=== PATIENT | female | born 1965 | race Caucasian/White ===

== ENCOUNTER 2024-08-27 04:18 | Inpatient (IN) ==
[2024-08-27] MEDS: KETOROLAC 30 MG/ML VIAL IV STA (04:36)
[2024-08-27] MEDS: SODIUM CHLORIDE 0.9% 1,000 ML IV ONE (04:36)
[2024-08-27] MEDS: ACETAMINOPHEN 1,000 MG/100 ML VIAL IV STA (04:36)
[2024-08-27] MEDS: ONDANSETRON INJ 2 MG/ML 2 ML VIAL IV STA (04:36)
[2024-08-27 04:47] LABS: Hematocrit (blood only) 45.8 % (37.0-47.0); Hemoglobin 14.8 g/dl (12.0-16.0); Immature Granulocytes # (auto) 0.03 K/uL (0.01-0.20); Immature Granulocytes % (auto) 0.2 %; Mean Corpuscular Hemoglobin 28.2 pg (25.0-34.0); Mean Corpuscular Volume 87.2 fL (80.0-100.0); Platelet Count 311 K/uL (130-400); RDW Standard Deviation 47.0 fL (36.4-46.3); Red Blood Count 5.25 M/uL (4.20-5.40); White Blood Count 13.28 K/ul (4.8-10.8)
[2024-08-27] MEDS: OPTIRAY 320 100ml IV ONE (04:57)
[2024-08-27 05:03] LABS: Appearance Urine Clear (Clear); Bacteria Urine Automated 2+ (None Seen); Cast Urine Automated 0-2 /lpf (0-2); Glucose Urine UA Negative (Negative); RBC Urine Automated 0-2 /hpf (0-2)
[2024-08-27 05:08] LABS: Alanine Aminotransferase 22.0 U/L (7-52); Albumin Globulin Ratio 1.8 (0.9-2); Alkaline Phosphatase 87.0 U/L (34-104); Anion Gap 11.0 (3-11); Bilirubin,Total 0.4 mg/dl (0.2-1.0); Blood Urea Nitrogen 17.0 mg/dl (6-23); Calcium 9.8 mg/dl (8.6-10.3); Carbon Dioxide 27.0 mmol/L (21-32); Chloride 100.0 mmol/L (98-107); Creatinine Clr Calc Pharmacy 93.3 ml/min; Globulin 2.8 gm/dl (2.5-4.0); Glucose 127.0 mg/dl (70-99(Fasting)); Lipase 12.0 U/L (11-82); Potassium 3.9 mmol/L (3.5-5.1); Sodium 138.0 mmol/L (136-145); Total Protein 7.7 gm/dl (6.0-8.3)
--- NOTE | 2024-08-27 06:10 | CT Scan Report ---
EXAM: CT abd pelvis IV con only CLINICAL HISTORY: central and left side abd pain TECHNIQUE: Contiguous axial images were obtained from the level of the diaphragm to the pubic symphysis with intravenous contrast. Coronal and sagittal reconstructions were likewise performed and indicated to increase the sensitivity for detecting clinically relevant pathology. If IV contrast material had not been administered, the likelihood of detecting abnormalities relevant to the patient's condition would have been substantially decreased. CT scan was performed according to ALARA (as low as reasonably achievable). COMPARISON: April 16:16:00 FIRING PIN GAUGER FINDINGS: The visualized lung bases are clear. The liver is normal in size and attenuation. No focal liver lesions are seen. There is no intra or extrahepatic biliary ductal dilatation. Hepatic vasculature is patent. The gallbladder is remvoed. The spleen, pancreas, and adrenal glands are unremarkable. The kidneys are normal in size and attenuation. There is no hydronephrosis or perinephric fat stranding. No renal calculi or renal masses are identified. The ureters are normal in caliber and no ureteral calculi are seen. The bladder is normal in contour. Pelvic viscera are unremarkable. Abdominal and pelvic vasculature is patent. No adenopathy or fluid collections are seen. No aggressive appearing osseous lesions are identified. There is evidence of small bowel obstruction with dilated proximal small bowel loops- maximum diameter measures up to 3.5 cm. A clear transition point is identified in the right lower quadrant, involving a mid ileal loop. The bowel distal to the transition point is decompressed. No mass, hernia, or inflammatory mass is visualized at the transition point.-Findings are suspicious for adhesive bands as the likely etiology, particularly given the absence of other structural abnormalities. The colon is decompressed. No wall thickening or signs of colitis. IMPRESSION: 1. Small bowel obstruction with a transition point in the right lower quadrant, involving the mid ileal loop.-Etiology is most likely due to adhesions.-new finding.No radiographic evidence of bowel ischemia or perforation at this time. Electronically signed by Valeriy Coulter 08-27-2024 06:09 AM
--- NOTE | 2024-08-27 06:25 | Emergency Department Note ---
History of Present Illness General Chief complaint: Abdominal Pain Stated complaint: ABD PAIN Time Seen by Provider: 08/27/24 04:24 History of Present Illness Maximum Pain Intensity: 2 This is a 58-year-old female presenting to the emergency department for evaluation of abdominal pain. Patient awoke from sleep with pain that she rates an 8/10. This is periumbilical and left-sided. Pain does not radiate. She is nauseated without vomiting. No fevers or chills. No recent travel history. There is a past surgical history of cholecystectomy and subtotal hysterectomy. The patient did take antacids without any improvement of symptoms. She has not had pain like this in the past. Discomfort is rated a 7/10 at worst. Home Medications Medication Instructions Recorded Confirmed Type albuterol sulfate 2.5 mg/3 mL 0 mg continuous nebulization QID 05/10/24 08/27/24 History (0.083 %) solution for nebulization PRN Wheezing budesonide 0.5 mg/2 mL suspension 0 mg inhalation DAILY 05/21/24 08/27/24 History for nebulization cyanocobalamin (vitamin B-12) 0 mcg IM DIRECTED 08/27/24 08/27/24 History 1,000 mcg/mL injection solution Allergies Allergy/AdvReac Type Severity Reaction Status Date / Time Opioids - Morphine Analogues Allergy Unverified 05/21/24 09:28 Penicillins Allergy Unverified 05/21/24 09:28 Past Med/Surg History Problem List (Updated 08/27/24 @ 21:44 by Neto Shay PA-C) SBO (small bowel obstruction) (Acute) Medical History Asthma Surgical History H/O partial thyroidectomy S/P cholecystectomy H/O: hysterectomy Social History Smoking Status: Never smoker Hx Alcohol Use: No Hx Substance Use: No Preferred Language: Urdu Communication Ability: Effective [employer] Supervisor Required: No Beliefs That Will Affect Care: None Current Living Situation: Other Current Living Situation Comment: boarding with roomate Feels Safe at Home: Yes Safety Concerns: Feels Safe At This Time Assistive Devices: Contacts Review of Systems A total of 10 systems reviewed and were otherwise negative Physical Exam Vital Signs Vital Signs - 24 hr 08/27/24 04:19 08/27/24 04:42 08/27/24 05:04 Temperature 36.5 C Temperature Source Temporal Artery Scan Pulse Rate 118 H Pulse Rate [Left Apical] 94 H Pulse Rate from SpO2 Sensor Respiratory Rate 18 16 Blood Pressure 149/108 H Blood Pressure [Left Arm] 142/75 H Blood Pressure Mean 121 Blood Pressure Mean [Left Arm] 97 Pulse Oximetry 97 96 93 Oxygen Delivery Method Room Air Room Air Room Air Sepsis Recent Fever Within 48 Hours No Sepsis New/Unexplained Change in Mental Status No Sepsis Action Taken by Nursing No Action Required 08/27/24 05:07 08/27/24 05:09 08/27/24 06:24 Temperature Temperature Source Pulse Rate 105 H 95 H 89 Pulse Rate [Left Apical] Pulse Rate from SpO2 Sensor 95 H Respiratory Rate 18 18 Blood Pressure 148/98 H Blood Pressure [Left Arm] Blood Pressure Mean 114 Blood Pressure Mean [Left Arm] Pulse Oximetry 92 Oxygen Delivery Method Sepsis Recent Fever Within 48 Hours Sepsis New/Unexplained Change in Mental Status Sepsis Action Taken by Nursing VITALS: Vitals are noted on the nurse's note and reviewed by myself. Vital signs stable. GENERAL: Well-developed, well-nourished, white female, who is moderately uncomfortable on presentation. HEAD: Normocephalic atraumatic. NECK: Supple without nuchal rigidity. No lymphadenopathy. No thyromegaly. Cervical spine is nontender. HEART: Regular rate and rhythm without murmurs gallops or rubs. LUNGS: Clear to auscultation bilaterally without wheezes, rales or rhonchi. No retractions or accessory muscle use. ABDOMEN: Positive normal bowel sounds x 4. Soft, nontender, without masses or organomegaly. No guarding or rebound tenderness. MUSCULOSKELETAL: No muscle atrophy, erythema, or edema noted. Full range of motion in all extremities. Course Administered Medications Enoxaparin Sodium (Enoxaparin Inj 40 Mg/0.4 Ml Syr) 40 mg SQ Q24H [facility] Stop: 09/26/24 06:59 Last Admin: 08/27/24 12:38 Dose: 40 mg Documented By: ANITA Lactated Ringer's (Lr) 1,000 mls @ 125 mls/hr IV .Q8H [facility] Stop: 08/30/24 06:59 Last Admin: 08/27/24 16:21 Dose: 125 mls/hr Documented By: Infusion: 08/27/24 15:13 Dose: Infused Documented By: Admin: 08/27/24 07:13 Dose: 125 mls/hr Documented By: RASHEL Ketorolac Tromethamine (Ketorolac Tromethamine 15 Mg/Ml Vial) 10 mg IV Q6H PRN PRN Reason: Pain Stop: 09/01/24 11:59 Last Admin: 08/27/24 18:01 Dose: 10 mg Documented By: ANITA Ondansetron HCl (Ondansetron Inj 2 Mg/Ml 2 Ml Vial) 4 mg IV Q6H PRN PRN Reason: Nausea Stop: 09/26/24 06:46 Last Admin: 08/27/24 17:22 Dose: 4 mg Documented By: ANITA Discontinued Medications Sodium Chloride (Nss) 1,000 mls @ 999 mls/hr IV .Q1H1M ONE Stop: 08/27/24 05:29 Last Infusion: 08/27/24 06:04 Dose: Infused Documented By: Admin: 08/27/24 04:36 Dose: 999 mls/hr Documented By: BRUCE Acetaminophen (Ofirmev) 1,000 mg in 100 mls @ 400 mls/hr IV NOW STA Stop: 08/27/24 04:43 Last Infusion: 08/27/24 05:15 Dose: Infused Documented By: Admin: 08/27/24 04:36 Dose: 400 mls/hr Documented By: BRUCE Ioversol (Optiray 320 125ml) 93 ml IV ONCE ONE Stop: 08/27/24 04:58 Last Admin: 08/27/24 11:43 Dose: Not Given Documented By: ANITA Ioversol (Optiray 320 100ml) 93 ml IV ONCE ONE Stop: 08/27/24 04:58 Last Admin: 08/27/24 04:57 Dose: 93 ml Documented By: MARLENY Ketorolac Tromethamine (Ketorolac 30 Mg/Ml Vial) 30 mg IV NOW STA Stop: 08/27/24 04:30 Last Admin: 08/27/24 04:36 Dose: 30 mg Documented By: BRUCE Ondansetron HCl (Ondansetron Inj 2 Mg/Ml 2 Ml Vial) 4 mg IV NOW STA Stop: 08/27/24 04:30 Last Admin: 08/27/24 04:36 Dose: 4 mg Documented By: BRUCE Medical Decision Making Differential Diagnosis Differential diagnosis: Etiologies such as biliary colic, cholecystitis, hepatitis, pancreatitis, cardiac disease, pancreatitis, gastritis, peptic ulcer disease, appendicitis, cystitis, diverticulitis, mesenteric ischemia, inflammatory bowel disease, ileus, bowel obstruction, testicular/adnexal torsion, aortic pathology, shingles, as well as others were considered Laboratory Data 08/27/24 04:32 08/27/24 04:32 Lab Results 08/27/24 08/27/24 Range/Units 04:32 04:44 WBC 13.28 H (4.8-10.8) K/ul RBC 5.25 (4.20-5.40) M/uL Hgb 14.8 (12.0-16.0) g/dl POC Hgb 16.3 H (12.0-16.0) g/dl Hct 45.8 (37.0-47.0) % POC Hct 48 H (37-47) % MCV 87.2 (80.0-100.0) fL MCH 28.2 (25.0-34.0) pg MCHC 32.3 (32.0-36.0) g/dL RDW Std Deviation 47.0 H (36.4-46.3) fL RDW Coeff of Jo-Ann 14.6 H (11.5-14.5) % Plt Count 311 (130-400) K/uL MPV 10.1 (9.4-12.4) fL Immature Gran % (Auto) 0.2 % Neut % (Auto) 69.0 % Lymph % (Auto) 23.4 % [place] % (Auto) 6.0 % Eos % (Auto) 1.1 % Baso % (Auto) 0.3 % Neut # (Auto) 9.16 H (1.40-6.50) K/uL Lymph # (Auto) 3.11 (1.20-3.40) K/uL [place] # (Auto) 0.80 H (0.11-0.59) K/uL Eos # (Auto) 0.14 (0.00-0.50) K/uL Baso # (Auto) 0.04 (0.00-0.20) K/uL Immature Gran # (Auto) 0.03 (0.01-0.20) K/uL POC Sodium 139 (135-144) mmol/L Sodium 138 (136-145) mmol/L POC Potassium 3.9 (3.3-5.0) mmol/L Potassium 3.9 (3.5-5.1) mmol/L POC Chloride 101 (101-112) mmol/L Chloride 100 (98-107) mmol/L Carbon Dioxide 27 (21-32) mmol/L POC Total CO2 24 (24-31) mmol/L Anion Gap 11 (3-11) POC Anion Gap 19.0 (16-25) mmol/L POC BUN 17 (7-18) mg/dl BUN 17 (6-23) mg/dl Creatinine 0.79 (0.6-1.2) mg/dl POC Creatinine 0.7 (0.6-1.3) mg/dl Est Cr Clr Drug Dosing 93.3 ml/min eGFR 87.74 BUN/Creatinine Ratio 21.5 H (10-20) Glucose 127 H (70-99(Fasting)) mg/dl POC Glucose (other) 129 H (70-99) mg/dl Calcium 9.8 (8.6-10.3) mg/dl POC Ioniz Calcium Sujata 1.23 (1.12-1.32) mmol/l Total Bilirubin 0.4 (0.2-1.0) mg/dl AST 17 (13-39) U/L ALT 22 (7-52) U/L Alkaline Phosphatase 87 (34-104) U/L Troponin I High Sens 4.2 (0-14) pg/ml Total Protein 7.7 (6.0-8.3) gm/dl Albumin 4.9 (3.4-5.0) gm/dl Globulin 2.8 (2.5-4.0) gm/dl Albumin/Globulin Ratio 1.8 (0.9-2) Lipase 12 (11-82) U/L Urine Color Yellow Urine Appearance Clear (Clear) Urine pH 5.0 (4.5-7.5) Ur Specific [place] 1.027 (1.000-1.030) Urine Protein Negative (Negative) Urine Glucose (UA) Negative (Negative) Urine Ketones Trace H (Negative) Urine Blood Negative (Negative) Urine Nitrite Negative (Negative) Urine Bilirubin Negative (Negative) Urine Urobilinogen Negative (Negative) Ur Leukocyte Esterase 1+ H (Negative) Urine WBC (Auto) 6-10 H (0-5) /hpf Urine RBC (Auto) 0-2 (0-2) /hpf U Hyaline Cast (Auto) 0-2 (0-2) /lpf U Epithel Cells (Auto) 6-10 H (0-2) /hpf Urine Bacteria (Auto) 2+ H (None Seen) Urine Comment Imaging Data Radiologist's Impression: Abdomen/Pelvis CT 08/27/24 04:29 EXAM: CT abd pelvis IV con only CLINICAL HISTORY: central and left side abd pain TECHNIQUE: Contiguous axial images were obtained from the level of the diaphragm to the pubic symphysis with intravenous contrast. Coronal and sagittal reconstructions were likewise performed and indicated to increase the sensitivity for detecting clinically relevant pathology. If IV contrast material had not been administered, the likelihood of detecting abnormalities relevant to the patient's condition would have been substantially decreased. CT scan was performed according to ALARA (as low as reasonably achievable). COMPARISON: April 16:16:00 ASSISTANT OPERATIONS MANAGER FINDINGS: The visualized lung bases are clear. The liver is normal in size and attenuation. No focal liver lesions are seen. There is no intra or extrahepatic biliary ductal dilatation. Hepatic vasculature is patent. The gallbladder is remvoed. The spleen, pancreas, and adrenal glands are unremarkable. The kidneys are normal in size and attenuation. There is no hydronephrosis or perinephric fat stranding. No renal calculi or renal masses are identified. The ureters are normal in caliber and no ureteral calculi are seen. The bladder is normal in contour. Pelvic viscera are unremarkable. Abdominal and pelvic vasculature is patent. No adenopathy or fluid collections are seen. No aggressive appearing osseous lesions are identified. There is evidence of small bowel obstruction with dilated proximal small bowel loops- maximum diameter measures up to 3.5 cm. A clear transition point is identified in the right lower quadrant, involving a mid ileal loop. The bowel distal to the transition point is decompressed. No mass, hernia, or inflammatory mass is visualized at the transition point.-Findings are suspicious for adhesive bands as the likely etiology, particularly given the absence of other structural abnormalities. The colon is decompressed. No wall thickening or signs of colitis. IMPRESSION: 1. Small bowel obstruction with a transition point in the right lower quadrant, involving the mid ileal loop.-Etiology is most likely due to adhesions.-new finding.No radiographic evidence of bowel ischemia or perforation at this time. Electronically signed by Valeriy Coulter 08-27-2024 06:09 AM MDM Narrative Physical exam and history were performed. Nursing notes, EMR, and Medication List were personally reviewed. No social concerns were identified as barriers to patients care. History was provided by the Patient. Patient appears to have abdominal pain bringing her to the ER. She does not appear toxic on arrival. IV access was established and labs were obtained. Patient was given IV Toradol and IV Tylenol with IV Zofran. She is sensitive to opioids, and these were considered, but not provided. Patient was sent to CT scan for imaging of her belly. Patient's blood work is as above and was reviewed. She does not have a significant elevated white blood cell count, gross anemia, bandemia, or significant electrolyte imbalance. Transaminases are not diagnostic. CT was performed and independently reviewed by myself and radiology, and appears to show small bowel obstruction. This was discussed with the on-call surgical team. Escalation of care is felt to be necessary. Case was also discussed with the on-call hospitalist team who agreed to evaluate the patient here in the ER. Please see their dictation for further patient course, plan, disposition. The chart was completed utilizing [employer] Speech Voice Recognition Software. Grammatical errors, random word insertions, pronoun errors, and incomplete sentences are an occasional consequence of this system due to software limitations, ambient noise, and hardware issues. Any formal questions or concerns about the content, text, or information contained within the body of this dictation should be directly addressed to the provider for clarification. Impression & Plan SBO (small bowel obstruction) Discharge Plan Visit Data Chief Complaint: Abdominal Pain Stated Complaint: ABD PAIN ED Provider: Tammie Henson ED Midlevel Provider: Neto Shay Discharge Problem: SBO (small bowel obstruction) Patient Disposition: Admitted As Inpatient Condition: Fair Discharge Instructions Interventions: ED Discharge Assessment Last Done: 08/27/24 09:57
--- NOTE | 2024-08-27 06:27 | History & Physical Report ---
Date of Service August 27, 2024 Assessment & Plan (1) SBO (small bowel obstruction): Plan: 58-year-old female with past medical history of partial hysterectomy and cholecystectomy who presents with a small bowel obstruction with transition point, suspected adhesional. Small bowel obstruction CTA/P: Small bowel obstruction with transition point in quadrant involving mid ileal loop. Suspect adhesional. N.p.o. Patient has not had vomiting and currently feels her nausea is improving. Defers NGT, but agreeable to this if any recurrent nausea/vomiting. If she has nausea/vomiting recurrent place NGT to LIS IV FM LR 125 cc/h Multimodal pain control with Tylenol, Toradol, breakthrough morphine Zofran for nausea Asthma Well-controlled, no acute exacerbation Albuterol nebulizers as needed for wheezing develops Caffeine Migraines - Will monitor. If able to progress and tolerate PO meds --> can trial fioricet - If progressing and diet advances --> resume coffee History of chest pain Low risk on prior workup. Had 2 coronary calcium scans, first was normal/0, most recent was with a score of 11. No chest pain prior to admission EKG normal sinus rhythm no territorial ST segment changes >1mm DVT prophylaxis: Lovenox. Hold if surgical intervention is anticipated Disposition: MSO CODE STATUS: Full code Diet: N.p.o. (2) Asthma: History of Present Illness Primary Care Provider: RAYMOND WOODRUFF JOHN Camacho is a 58-year-old female with a past medical history of cholecystectomy, hysterectomy, partial thyroidectomy, and well-controlled asthma who presents to the emergency department with severe mid abdominal comfort. Recommended for medical admission for small bowel obstruction with transition point in the right lower quadrant. Suspected due to adhesions. Janice reports she went to sleep around midnight. 1am woke up after rolling around with sudden onset of abdominal discomfort. Pain in her mid abdomen. Tried tums and omeprazole with no relief. 3am 'just in so much pain' so took 3 tylenol and came to the ER. Last BM yesterday. Not passing gas overnight and could not pass BM yesterday. Think she has passed a very small amount of flatus this morning Had a colonoscopy in [place] 2 months ago, no abnormalities. Had a polyp/adenocarcinoma removed prior to that +nausea with pain, no vomiting. Thinks the nausea was from pain. Pain now 4-5/10 and coming in waves Had a past workup in [place] for low risk chest pain, had a coronary CT score of 11, no history of CVA, no history of DVT. No recent chest pain. No history of heart failure. Denies chest pain prior to admission. No dyspnea Very high cholesterol. Statin intolerant, was denied coverage for repatha hx of cholecystectomy, partial hysterectomy, partial thyroidectomy Med hx: Asthma, fibromyalgia, thyroid cancer. Previously took wellbutrin, hasn't taken this in 6 months/ Currently not taking any prescription medications other than B12 shorts Medical History: Reviewed Medications: Reviewed Surgical History: Reviewed Family history: Reviewed Allergies: Reviewed. Allergy to PCN ~age 20, but tolerated to amoxicillin later in life Social History: No tobacco, rare ETOH use Code Status: Full Code Allergies Allergy/AdvReac Type Severity Reaction Status Date / Time Opioids - Morphine Analogues Allergy Unverified 05/21/24 09:28 Penicillins Allergy Unverified 05/21/24 09:28 Home Medications Medication Instructions Recorded Confirmed Type albuterol sulfate 2.5 mg/3 mL 2.5 mg continuous nebulization QID 05/10/24 05/21/24 History (0.083 %) solution for nebulization PRN Wheezing bupropion HCl 300 mg 24 hr tablet, 300 mg PO DAILY 05/10/24 05/21/24 History extended release azithromycin 250 mg tablet See Rx Instructions PO .COMPLEX #6 05/21/24 05/21/24 Rx tabs budesonide 0.5 mg/2 mL suspension mg inhalation DAILY 05/21/24 05/21/24 History for nebulization Past Med/Surg History Problem List SBO (small bowel obstruction) Medical History Asthma Surgical History H/O partial thyroidectomy S/P cholecystectomy H/O: hysterectomy Social History Smoking Status: Never smoker Preferred Language: Yakut Feels Safe at Home: Yes Physical Exam Physical Exam: General: A&Ox3. NAD. Cooperative. HEENT: Atraumatic, normocephalic. Vision/hearing grossly intact. PERLAA. Pulm: CTAB A&P. -wheezes, -rales, -rhonchi. Symmetrical chest rise. No increased work of breathing. No respiratory distress. Cardiac: RRR, -mrg. Radial pulses intact and symmetrical. Abdominal: Diffusely tender in the right and left lower quadrant without rigidity/rebound/guard Results & Data Results & Data Vital Signs (Past 12 Hours) Vital Signs Temp Pulse Pulse Resp BP BP Pulse Ox 08/27/24 05:07 105 H 08/27/24 05:04 94 H 16 142/75 H 93 08/27/24 04:42 96 08/27/24 04:19 36.5 C 118 H 18 149/108 H 97 O2 Del Method 08/27/24 05:07 08/27/24 05:04 Room Air 08/27/24 04:42 Room Air 08/27/24 04:19 Room Air PG Care Time/CCT Total # of Minutes Spent Total Time Spent with Patient: Total time spent is greater than 50% in coordination of care (as documented) at patient's floor/unit and/or counseling patient: Coding Level of Care Code 51607 INT INP/OBS CARE MIN Diagnoses SBO (small bowel obstruction) K56.609 Asthma J45.909
[2024-08-27] MEDS ORDERED: MoRPHine SULFATE 4 MG/ML 1 ML CARP\\VIAL IV PRN (06:47)
[2024-08-27] MEDS ORDERED: MoRPHine SULFATE 2 MG/ML CARP IV PRN (06:47)
[2024-08-27] MEDS: LACTATED RINGER'S 1,000 ML IV SCH (07:13)
[2024-08-27] MEDS ORDERED: ALBUTEROL 0.083% NEBU SOLN 3 ML VIAL NEB PRN (10:41)
[2024-08-27] MEDS: OPTIRAY 320 125ml IV ONE (11:43)
--- NOTE | 2024-08-27 12:06 | Electrocardiogram Report ---
Test Reason : Blood Pressure : */* mmHG Vent. Rate : 100 BPM Atrial Rate : 100 BPM P-R Int : 134 ms QRS Dur : 110 ms QT Int : 366 ms P-R-T Axes : 32 -9 28 degrees QTcB Int : 472 ms Normal sinus rhythm Moderate voltage criteria for LVH, may be normal variant ( R in aVL , [place] product ) Otherwise normal ECG When compared with ECG of 10-May-2024 15:01, Premature ventricular complexes are no longer Present T wave amplitude has increased in Anterior leads Confirmed by Curtis Goldman ([id number]) on 08/27/2024 12:05:48 PM Referred By: REFERRED SELF Confirmed By: Curtis Goldman
[2024-08-27] MEDS: ENOXAPARIN INJ 40 MG/0.4 ML SYR SQ SCH (12:38)
--- NOTE | 2024-08-27 15:39 | Surgery Consultation ---
<Statement entered by Jennifer Reyes, DO - 08/27/24 15:47> I have seen and examined this patient with the surgical STATEMENT SERVICES REPRESENTATIVE this am. I agree with this plan. Date of Consultation August 27, 2024 Assessment & Plan (1) SBO (small bowel obstruction): Patient seen and evaluated this morning with attending surgeon, Dr. Madonna Gandara. All imaging and labs reviewed. -No plans for emergent surgical intervention. Will plan to treat conservatively for now. -Keep NPO, IV fluids for hydration, and pain control as needed -Patient currently without nausea or vomiting, will hold off on NGT placement for now. However if patient does become symptomatic she will require NGT for bowel decompression -Patient has also had chronic diarrhea for the last few months, if she continues with this during her hospitalization , would recommend stool studies to be performed. -Medical management per primary team, surgery will continue to follow History of Present Illness Reason for Consultation: SBO History of Present Illness Patient is a 58-year-old female who presented to the emergency room early this morning with complaints of severe abdominal pain. Patient states the the pain had woken her up from sleep and was located in her mid-abdomen region. The patent states that she tried to take Omeprazole and Tylenol however nothing seemed to help. She also was experiencing some associated nausea however no episdoes of vomiting. The patient also notes she has had chronic diarrhea for the last few months and is unsure the cause. She denies any pain with bowel movements or blood present in her stool. States her last BM was yesterday and since has passed a small amount of gas however no additional BMs. The patient has had colonoscopies in the past, one of which did show a polyp and adenocarcinoma that were both removed. Repeat colonoscopy a few moths ago did not show any abnormalities at that time. She does have a surgical history of hysterectomy and cholecystectomy. The patient was worked up in the emergency room and was found to have CT findings concerning for SBO. The patient was admitted to the medical service and general surgery was consulted. The patient was seen and evaluated this morning with attending surgeon, Dr. Reyes. She is resting comfortably in bed, VSS, and is nontoxic appearing. The patient states her pain has improved however she does continue to feel "uncomfortable" . Allergies Allergy/AdvReac Type Severity Reaction Status Date / Time Opioids - Morphine Analogues Allergy Unverified 05/21/24 09:28 Penicillins Allergy Unverified 05/21/24 09:28 Home Medications Medication Instructions Recorded Confirmed Type albuterol sulfate 2.5 mg/3 mL 0 mg continuous nebulization QID 05/10/24 08/27/24 History (0.083 %) solution for nebulization PRN Wheezing budesonide 0.5 mg/2 mL suspension 0 mg inhalation DAILY 05/21/24 08/27/24 History for nebulization cyanocobalamin (vitamin B-12) 0 mcg IM DIRECTED 08/27/24 08/27/24 History 1,000 mcg/mL injection solution Patient History Medical History Asthma Surgical History H/O partial thyroidectomy S/P cholecystectomy H/O: hysterectomy Social History Smoking Status: Never smoker Preferred Language: Luxembourgish Feels Safe at Home: Yes Review of Systems Constitutional: no fever, no chills and no weakness Respiratory: no cough, no chest congestion and no dyspnea Cardiovascular: no chest pain, no palpitations and no syncope Gastrointestinal: + abdominal pain, + nausea and + diarrhe a/loose stools; no vomiting Genitourinary: no difficulty urinating, no urinary hesitancy and no hematuria Physical Exam Constitutional: WD/WN, vitals as above Respiratory: normal respiratory effort, lungs clear to auscultation Cardiovascular: RRR, no murmur, no edema Gastrointestinal (Abdomen): Abdomen soft, nondistended, +TTP in the mid and lower abdominal region. No rebound, guarding or signs of peritonitis Skin: no rashes, warm and dry Psychiatric: A+Ox3, euthymic affect Results & Data Vital Signs (Past 12 Hours) Vital Signs Temp Pulse Pulse Resp BP BP Pulse Ox 08/27/24 15:18 36.6 C 80 16 118/77 96 08/27/24 09:57 71 17 135/78 96 08/27/24 09:00 79 17 111/69 95 08/27/24 07:00 88 17 144/95 H 93 08/27/24 06:24 89 18 148/98 H 08/27/24 05:09 95 H 18 92 08/27/24 05:07 105 H 08/27/24 05:04 94 H 16 142/75 H 93 08/27/24 04:42 96 08/27/24 04:19 36.5 C 118 H 18 149/108 H 97 O2 Del Method 08/27/24 15:18 Room Air 08/27/24 09:57 Room Air 08/27/24 09:00 Room Air 08/27/24 07:00 Room Air 08/27/24 06:24 08/27/24 05:09 08/27/24 05:07 08/27/24 05:04 Room Air 08/27/24 04:42 Room Air 08/27/24 04:19 Room Air Diagnostic Findings EXAM: CT abd pelvis IV con only CLINICAL HISTORY: central and left side abd pain TECHNIQUE: Contiguous axial images were obtained from the level of the diaphragm to the pubic symphysis with intravenous contrast. Coronal and sagittal reconstructions were likewise performed and indicated to increase the sensitivity for detecting clinically relevant pathology. If IV contrast material had not been administered, the likelihood of detecting abnormalities relevant to the patient's condition would have been substantially decreased. CT scan was performed according to ALARA (as low as reasonably achievable). COMPARISON: April 16:16:00 CIVIL ENGINEERING SPECIALIST FINDINGS: The visualized lung bases are clear. The liver is normal in size and attenuation. No focal liver lesions are seen. There is no intra or extrahepatic biliary ductal dilatation. Hepatic vasculature is patent. The gallbladder is remvoed. The spleen, pancreas, and adrenal glands are unremarkable. The kidneys are normal in size and attenuation. There is no hydronephrosis or perinephric fat stranding. No renal calculi or renal masses are identified. The ureters are normal in caliber and no ureteral calculi are seen. The bladder is normal in contour. Pelvic viscera are unremarkable. Abdominal and pelvic vasculature is patent. No adenopathy or fluid collections are seen. No aggressive appearing osseous lesions are identified. There is evidence of small bowel obstruction with dilated proximal small bowel loops- maximum diameter measures up to 3.5 cm. A clear transition point is identified in the right lower quadrant, involving a mid ileal loop. The bowel distal to the transition point is decompressed. No mass, hernia, or inflammatory mass is visualized at the transition point.-Findings are suspicious for adhesive bands as the likely etiology, particularly given the absence of other structural abnormalities. The colon is decompressed. No wall thickening or signs of colitis. IMPRESSION: 1. Small bowel obstruction with a transition point in the right lower quadrant, involving the mid ileal loop.-Etiology is most likely due to adhesions.-new finding.No radiographic evidence of bowel ischemia or perforation at this time. PG Care Time/CCT Total # of Minutes Spent Total Time Spent with Patient: Total time spent is greater than 50% in coordination of care (as documented) at patient's floor/unit and/or counseling patient: [place] [address] Inpt Consult Level 1 Patient Type New History Problem Focused Exam Problem Focused Medical Decision Making Straight Forward Diagnoses SBO (small bowel obstruction) K56.609
[2024-08-27] MEDS: ONDANSETRON INJ 2 MG/ML 2 ML VIAL IV PRN (17:22)
[2024-08-27] MEDS: KETOROLAC TROMETHAMINE 15 MG/ML VIAL IV PRN (18:01)
[2024-08-28 07:51] LABS: Anion Gap 5.0 (3-11); Blood Urea Nitrogen 10.0 mg/dl (6-23); Calcium 8.4 mg/dl (8.6-10.3); Carbon Dioxide 30.0 mmol/L (21-32); Chloride 105.0 mmol/L (98-107); Creatinine Clr Calc Pharmacy 115.2 ml/min; Glucose 90.0 mg/dl (70-99(Fasting)); Magnesium 1.9 mg/dl (1.7-2.4); Potassium 3.9 mmol/L (3.5-5.1); Sodium 140.0 mmol/L (136-145)
[2024-08-28] MEDS: ACETAMINOPHEN 1,000 MG/100 ML VIAL IV PRN (07:54)
[2024-08-28] MEDS: BUTALBITAL/ACETAMIN/CAFFEINE TAB PO PRN (08:04)
--- NOTE | 2024-08-28 10:28 | Surgery Progress Note ---
<Statement entered by Jennifer Reyes DO - 08/28/24 15:52> I agree with this plan Date of Service August 28, 2024 Assessment & Plan (1) SBO (small bowel obstruction): Plan: - Continue to treat conservatively for now. - Patient is starting to pass a small amount of gas, however no BM yet. Will advance to clear liquids today, however if she is unable to tolerate we will have to back her down to NPO. - Can continue to hold off on NGT placement for now however if patient does become symptomatic she will require it for bowel decompression -Medical management per primary team, surgery will continue to follow. [facility] surgery public relations professional this week. Admission and Anticipated Discharge Date Admission Date: August 27, 2024 Subjective Patient seen and evaluated this morning, she is complaining of a headache due to having any caffeine States that she does feel comfortable in her abdomen, however denies any nausea or vomiting Is passing gas, however no BM Vital signs stable, afebrile Physical Exam Constitutional: WD/WN, vitals as above Respiratory: normal respiratory effort, lungs clear to auscultation Cardiovascular: RRR, no murmur, no edema Gastrointestinal (Abdomen): Abdomen soft, nondistended, minimal tenderness in the lower abdomen No rebound or guarding Skin: no rashes, warm and dry Psychiatric: A+Ox3, euthymic affect Results & Data Vital Signs (Past 12 Hours) Vital Signs Temp Pulse Resp BP Pulse Ox O2 Del Method 08/28/24 08:29 36.7 C 91 H 18 110/66 92 Room Air PG Care Time/CCT Total # of Minutes Spent Total Time Spent with Patient: Total time spent is greater than 50% in coordination of care (as documented) at patient's floor/unit and/or counseling patient: [place] [address] SUB INP/OBS CARE 03/18MIN Patient Type Established History Problem Focused Exam Problem Focused Medical Decision Making Straight Forward Diagnoses SBO (small bowel obstruction) K56.609
--- NOTE | 2024-08-28 17:17 | Hospitalist Progress Note ---
Date of Service August 28, 2024 Assessment & Plan (1) SBO (small bowel obstruction): Plan: SBO likely on the basis of adhesions (h/o hysterectomy - abdominal, as well as cholecystectomy) slowly improving clears started by general surgery remains on IV fluids but lower rate to 60ml/hr BMP am anti-emetics prn finally had BM today! cont walking serial exams (2) Asthma: Plan: no flare at this time (3) DVT prophylaxis: Plan: lovenox 40mg daily (4) Headache: Plan: cont fioricet prn (5) Hx of adenomatous colonic polyps: Plan: h/o cancerous polyp s/p polypectomy GI physician is in [facility] had colonoscopy 2 months ago - was clean, no abnormalities (6) Abdominal pain: Plan: patient reports several months of pain prior to this episode of SBO again had colonoscopy about 2 months ago in [facility] - was negative, however the GI physician said there was a portion of the colon where it appeared there was external compression from some process/pathology subsequent CT a/p have not shown any abnormalities to explain the abnormal finding on c-scope in light of this SBO episode along with her abdominal pain of several months - coupled with the external compression finding on last c-scope - advised she return to her GI doctor in [facility] after this admission to discuss things further will place her CT a/p from this admission on CD for her Admission and Anticipated Discharge Date Admission Date: August 27, 2024 Subjective passed flatus this am ultimately started on clears for lunch the clears caused some mild stomach upset/discomfort but no pain (more of a pressure sensation) has been walking the hallways finally had a small BM this afternoon no nausea/emesis still feels a little bloated Review of Systems Review of Systems: gen - no fevers cv - no cp pulm - no dyspnea or GODINEZ Physical Exam Physical Exam: gen - obese, NAD, very pleasant mouth - MMM neck - no JVD heart - RRR, s1 s2, no murmur lungs - CTA b/l abd - mild distension, BS very diminished, NT, no HSM, no peritoneal signs ext - no edema, pulses 2+ b/l feet psych - a/o x 3 Results & Data Results & Data Vital Signs (Past 12 Hours) Vital Signs Temp Pulse Resp BP Pulse Ox O2 Del Method 07/07/25 08:29 36.7 C 91 H 18 110/66 92 Room Air Laboratory Results Laboratory Results - last 24 hr 08/28/24 07:10 Sodium 140 Potassium 3.9 Chloride 105 Carbon Dioxide 30 Anion Gap 5 BUN 10 Creatinine 0.64 Est Cr Clr Drug Dosing 115.2 eGFR 103.66 BUN/Creatinine Ratio 15.6 Glucose 90 Calcium 8.4 L Magnesium 1.9 PG Care Time/CCT Total # of Minutes Spent Total Time Spent with Patient: Total time spent is greater than 50% in coordination of care (as documented) at patient's floor/unit and/or counseling patient: Coding Level of Care Code 07675 SUB INP/OBS CARE 2/35MIN Diagnoses SBO (small bowel obstruction) K56.609 Asthma J45.909 DVT prophylaxis Z29.9 Headache R51.9 Hx of adenomatous colonic polyps Z86.0101 Abdominal pain R10.9
[2024-08-29 08:46] LABS: Anion Gap 6.0 (3-11); Blood Urea Nitrogen 7.0 mg/dl (6-23); Calcium 8.3 mg/dl (8.6-10.3); Carbon Dioxide 29.0 mmol/L (21-32); Chloride 107.0 mmol/L (98-107); Creatinine Clr Calc Pharmacy 106.8 ml/min; Glucose 100.0 mg/dl (70-99(Fasting)); Potassium 3.7 mmol/L (3.5-5.1); Sodium 142.0 mmol/L (136-145)
--- NOTE | 2024-08-29 09:56 | Surgery Progress Note ---
Date of Service August 29, 2024 Assessment & Plan (1) SBO (small bowel obstruction): Plan: resolved regular diet discharge per medical team Admission and Anticipated Discharge Date Admission Date: August 27, 2024 Subjective good BMs no pain Review of Systems Constitutional: no fever and no chills Respiratory: no cough and no dyspnea Cardiovascular: no chest pain Gastrointestinal: no abdominal pain, no nausea, no vomiting and no change in bowel habits Genitourinary: no dysuria Neurologic: no localized weakness and no generalized weakness Psychiatric: no behavioral changes Physical Exam Constitutional: WD/WN, vitals as above Respiratory: normal respiratory effort, lungs clear to auscultation Cardiovascular: RRR, no murmur, no edema Gastrointestinal (Abdomen): Inspection/Auscultation: abdomen normal to inspection and normal bowel sounds; abdomen not distended Percussi on/Palpation: abdomen soft; abdomen nontender, no guarding and abdomen not rigid Musculoskeletal: Head/Neck/Chest: normocephalic and head atraumatic Skin: no rashes, warm and dry Results & Data Vital Signs (Past 12 Hours) Vital Signs Temp Pulse Resp BP Pulse Ox O2 Del Method 08/29/24 08:11 37.0 C 89 18 124/77 92 Room Air
[2024-08-29 16:14] VITALS: BP 143/94; PULSE 81; RESP 16; TEMP 98.2; O2SAT 95
--- NOTE | 2024-08-29 17:07 | Discharge Summary ---
Discharge Summary Date of Service August 29, 2024 Principal Dx & Hospital Course #1 = Principal Diagnosis (1) SBO (small bowel obstruction): SBO likely on the basis of adhesions (h/o hysterectomy - abdominal, as well as cholecystectomy) slowly improving clears started by general surgery remains on IV fluids but lower rate to 60ml/hr BMP am anti-emetics prn finally had BM today! cont walking serial exams (2) Asthma: no flare at this time (3) DVT prophylaxis: lovenox 40mg daily (4) Headache: cont fioricet prn (5) Hx of adenomatous colonic polyps: h/o cancerous polyp s/p polypectomy GI physician is in [facility] had colonoscopy 2 months ago - was clean, no abnormalities (6) Abdominal pain: patient reports several months of pain prior to this episode of SBO again had colonoscopy about 2 months ago in [facility] - was negative, however the GI physician said there was a portion of the colon where it appeared there was external compression from some process/pathology subsequent CT a/p have not shown any abnormalities to explain the abnormal finding on c-scope in light of this SBO episode along with her abdominal pain of several months - coupled with the external compression finding on last c-scope - advised she return to her GI doctor in [facility] after this admission to discuss things further will place her CT a/p from this admission on CD for her Admission HPI Per Admitting Provider Janice is a 58-year-old female with a past medical history of cholecystectomy, hysterectomy, partial thyroidectomy, and well-controlled asthma who presents to the emergency department with severe mid abdominal comfort. Recommended for medical admission for small bowel obstruction with transition point in the right lower quadrant. Suspected due to adhesions. Janice reports she went to sleep around midnight. 1am woke up after rolling around with sudden onset of abdominal discomfort. Pain in her mid abdomen. Tried tums and omeprazole with no relief. 3am 'just in so much pain' so took 3 tylenol and came to the ER. Last BM yesterday. Not passing gas overnight and could not pass BM yesterday. Think she has passed a very small amount of flatus this morning Had a colonoscopy in [place] 2 months ago, no abnormalities. Had a polyp/adenocarcinoma removed prior to that +nausea with pain, no vomiting. Thinks the nausea was from pain. Pain now 4-5/10 and coming in waves Had a past workup in [place] for low risk chest pain, had a coronary CT score of 11, no history of CVA, no history of DVT. No recent chest pain. No history of heart failure. Denies chest pain prior to admission. No dyspnea Very high cholesterol. Statin intolerant, was denied coverage for repatha hx of cholecystectomy, partial hysterectomy, partial thyroidectomy Med hx: Asthma, fibromyalgia, thyroid cancer. Previously took wellbutrin, hasn't taken this in 6 months/ Currently not taking any prescription medications other than B12 shorts Medical History: Reviewed Medications: Reviewed Surgical History: Reviewed Family history: Reviewed Allergies: Reviewed. Allergy to PCN ~age 20, but tolerated to amoxicillin later in life Social History: No tobacco, rare ETOH use Code Status: Full Code Discharge Exam gen - obese, NAD, very pleasant mouth - MMM neck - no JVD heart - RRR, s1 s2, no murmur lungs - CTA b/l abd - mild distension, BS very diminished, NT, no HSM, no peritoneal signs ext - no edema, pulses 2+ b/l feet psych - a/o x 3 Discharge Plan Discharge Items Patient Disposition: Home - Self-Care Reason For Visit: Small Bowel Obstruction Discharge Diagnosis: Small Bowel Obstruction ("SBO") - resolved Activity: As commented below Activity Comment: gradually increase activities over the next few days as tolerated Non-emergency contact: Primary Care Provider Call non-emergency contact if: you have any medication questions, your symptoms worsen, your pain is not controlled, your pain is worsening and you have a fever Follow-up/Referrals: RAYMOND LOPEZ [Other] Diet: Low Fiber Addtl Attending Provider Instructions: Ms Fermin, You were hospitalized due to a small bowel obstruction (SBO). This was treated with IV fluids, bowel rest, and supportive care. Most SBOs occur as a result of "adhesions" (scar tissue) in the abdominal cavity. Occasionally they occur as a result of something internally in the bowel itself. It is suspected that your SBO was due to adhesions. With conservative measures the SBO resolved. You have had multiple bowel movements and you are tolerating a low fiber diet. It is pretty common to have loose/liquid stools for a few days during the recovery phase of an SBO. The stools should become more normal as the week goes on. Recommendations - 1. please follow a low fiber diet for at least 7-10 days (see handout). 2. do not take any qzsk-bzc-ojlofbs diarrhea medicines (imodium, etc). 3. do not take any hfkr-din-zszlsxi fiber supplements at this time. 4. please plan to follow-up with your GI physician in [place] in the next month or so to discuss your previous abdominal discomforts. Be sure to bring the CD with your CT scan with you to that follow-up appointment. 5. if possible see your family doctor in the next 1-2 weeks for a quick check up. 6. I noticed during your stay that your blood pressures were high at times. Please purchase a blood pressure cuff if you don't have one and check your blood pressure daily. Keep a log of your blood pressures and show these to your family doctor. Return to [facility] if - * you have recurrent abdominal pain * you have blood in your stools * your diarrhea worsens over the next few days as opposed to improving * you have severe nausea and/or vomiting * any other concerns It was our pleasure to care for you! -Kimani Matos, hospitalist Pending Studies at Discharge: No Stand-Alone Forms: [facility], Smoking Cessation Medications and DC Order Prescriptions: Continued albuterol sulfate 2.5 mg /3 mL (0.083 %) solution for nebulization 0 mg continuous nebulization QID PRN (Reason: Wheezing) Patient Comments: 08/27-last filled 05/10/24 4 day supply #75 Changed budesonide 0.5 mg/2 mL suspension for nebulization 0.5 mg inhalation DAILY Qty: 0 0RF Patient Comments: 08/27- last filled 05/10/24 10 day supply cyanocobalamin (vitamin B-12) 1,000 mcg/mL Solution 1,000 mcg IM DIRECTED Qty: 0 0RF Patient Comments: 08/27- no fill history unable to verify Discharge Orders: Discharge Order (Routine); Ordered 08/29/24 Ordered By: Kimani Hernandez/Other Patient Handouts: Small Bowel Obstruction, Low-Fiber Diet Admission Data Admit Date/Time: 08/27/24 06:48 Attending Provider: Kimani Matos Admit Provider: Db Argueta Primary Care Provider: RAYMOND LOPEZ Other Providers: Db Argueta; Jennifer Reyes Hospital Stay Data Consultations 08/27/24 06:21 ED Decision to Admit Stat 08/27/24 06:22 Consult General Surgery Routine 08/29/24 12:10 Burn CD for patient Routine Diagnostic Imagining Performed 08/27/24 04:29 CT abd pelvis IV con only Stat Pending Results Patient Have Any Pending Studies at Discharge: No Discharge Instructions Given to Patient (Per Discharging Provider) Ms Fermin, Ivan were hospitalized due to a small bowel obstruction (SBO). This was treated with IV fluids, bowel rest, and supportive care. Most SBOs occur as a result of "adhesions" (scar tissue) in the abdominal cavity. Occasionally they occur as a result of something internally in the bowel itself. It is suspected that your SBO was due to adhesions. With conservative measures the SBO resolved. You have had multiple bowel movements and you are tolerating a low fiber diet. It is pretty common to have loose/liquid stools for a few days during the recovery phase of an SBO. The stools should become more normal as the week goes on. Recommendations - 1. please follow a low fiber diet for at least 7-10 days (see handout). 2. do not take any kyvl-lmn-vecrnus diarrhea medicines (imodium, etc). 3. do not take any rqrj-abt-bjnggrc fiber supplements at this time. 4. please plan to follow-up with your GI physician in [place] in the next month or so to discuss your previous abdominal discomforts. Be sure to bring the CD with your CT scan with you to that follow-up appointment. 5. if possible see your family doctor in the next 1-2 weeks for a quick check up. 6. I noticed during your stay that your blood pressures were high at times. Please purchase a blood pressure cuff if you don't have one and check your blood pressure daily. Keep a log of your blood pressures and show these to your family doctor. Return to [facility] if - * you have recurrent abdominal pain * you have blood in your stools * your diarrhea worsens over the next few days as opposed to improving * you have severe nausea and/or vomiting * any other concerns It was our pleasure to care for you! -Kimani Matos, hospitalist Coding Diagnoses SBO (small bowel obstruction) K56.609 Asthma J45.909 DVT prophylaxis Z29.9 Headache R51.9 Hx of adenomatous colonic polyps Z86.0101 Abdominal pain R10.9
== END 2024-08-29 17:43 | disposition home or self-care (01) | DRG 390 ==
LOC: SUATTDRO → ED 04:18 → 3N 06:48 → SUATTDRO 06:48 → 3N 09:57